=== PATIENT | female | born 1985 | race Caucasian/White ===

== ENCOUNTER 2016-06-20 17:42 | Emergency (ER) | payer SELFPAY ==
--- NOTE | 2016-06-20 18:58 | EDM.PDOC ---
[id number] 4d TOOTH PAIN Time Seen by Provider: 06/20/16 18:00 Source of Information: Reports: Patient History Limitations: Reports: No limitations - History of Present Illness INITIAL COMMENTS - FREE TEXT/NARRATIVE: HISTORY AND PHYSICAL: History of present illness: [31-year-old female complaining of left jaw toothache previously seen for this and prescribed amoxicillin with which she is compliant. Patient states she has persistent pain she is requesting pain medicine. No fevers chills sweats or shaking chills no headache or stiff neck. No chest pain or shortness of breath. Patient has not seen a dentist yet Review of systems: As per history of present illness and below otherwise all systems reviewed and negative. Past medical history: As per history of present illness and as reviewed below otherwise noncontributory. Surgical history: As per history of present illness and as reviewed below otherwise noncontributory. Social history: No reported history of drug or alcohol abuse. Family history: As per history of present illness and as reviewed below otherwise noncontributory. Physical exam: HEENT: Atraumatic, normocephalic, negative for conjunctival pallor or scleral icterus, mucous membranes moist, throat clear, neck supple, nontender, trachea midline. Left lower teeth with cavity but no soft tissue swelling mass tongue elevation /submental swelling or induration Lungs: Clear to auscultation, breath sounds equal bilaterally, chest nontender. Heart: S1S2, regular, negative for clicks, rubs, or JVD. Abdomen: Soft, nondistended, Negative for masses or hepatosplenomegaly. Pelvis: Stable nontender. Genitourinary: Deferred. Rectal: Deferred. Extremities: Atraumatic, negative for cords or calf pain. Neurovascular unremarkable. Neuro: Awake, alert, oriented. Motor unremarkable throughout. Exam nonfocal. Diagnostics: [] Therapeutics: [] Impression: [] Plan: [Signs and symptoms consistent with toothache however patient started been seen for this there is no evidence of drainable abscess or visible infection. Patient aware to take ibuprofen and Tylenol and followup for definitive dental care. Patient agrees with outpatient followup and strict return precautions given] Definitive disposition and diagnosis as appropriate pending reevaluation and review of above. Tooth/Teeth Pain Score (Numeric/FACES): 8 - Related Data Allergies Allergy/AdvReac Type Severity Reaction Status Date / Time No Known Allergies Allergy Verified 06/20/16 17:58 Home Meds: Home Meds Acetaminophen with Codeine [Acetaminophen-Cod #3] 1 tab PO TID PRN 06/20/16 [ History] Amoxicillin [IJD: Amoxicillin] 500 mg PO .THREE TIMES DAILY 06/20/16 [History] Penicillin V Potassium [IJP: Penicillin V Potassium] 500 mg PO .EVERY 6 HOURS # 40 tab 06/20/16 [Rx] Past Medical History Gastrointestinal History: Reports: None - Infectious Disease History Infectious Disease History: Reports: Chicken pox - Past Surgical History Head Surgeries/Procedures: Reports: None HEENT Surgical History: Reports: Tonsillectomy GI Surgical History: Reports: Appendectomy Social & Family History - Family History Family Medical History: Noncontributory - Tobacco Use Smoking Status *Q: Current Every Day Smoker Years of Tobacco use: 16 Packs/Tins Daily: 1 Second Hand Smoke Exposure: Yes - Caffeine Use Caffeine Use: Reports: Soda - Recreational Drug Use Recreational Drug Use: No ED ROS GENERAL - Review of Systems Review Of Systems: See Below (History of present illness) ED EXAM, GENERAL - Physical Exam Exam: See Below (History of present illness) Exam Limited By: No limitations Course - Vital Signs Last Recorded V/S: Last Vital Signs Temp 36.3 C 06/20/16 17:54 Pulse 56 L 06/20/16 19:40 Resp 18 06/20/16 19:40 BP 128/70 06/20/16 19:40 Pulse Ox 99 06/20/16 19:40 - Orders/Labs/Meds Meds: Medications Discontinued Medications Generic Name Dose Route Start Last Admin Trade Name Luis Alberto PRN Reason Stop Dose Admin Acetaminophen/Hydrocodone Bitart 1 tab 06/20/16 19:08 06/20/16 19:13 Amoret 325-5 Mg PO 06/20/16 19:09 1 tab ONETIME ONE Administration Benzocaine 2 each 06/20/16 19:03 06/20/16 19:13 Hurricaine One 20% MUCMEM 06/20/16 19:04 2 each ONETIME STA Administration Ketorolac Tromethamine 30 mg 06/20/16 19:06 06/20/16 19:20 Toradol IVPUSH 06/20/16 19:07 Not Given ONETIME ONE Ketorolac Tromethamine 30 mg 06/20/16 19:18 06/20/16 19:13 Toradol IM 06/20/16 19:19 30 mg ONETIME ONE Administration Lidocaine HCl 15 ml 06/20/16 19:04 06/20/16 19:13 Xylocaine 2% Viscous PO 06/20/16 19:05 15 ml ONETIME ONE Administration Departure - Departure Time of Disposition: 19:09 Disposition: Home, Self-Care 01 Condition: good Clinical Impression: Toothache Prescriptions: Penicillin V Potassium [IJP: Penicillin V Potassium] 500 mg PO .EVERY 6 HOURS # 40 tab Instructions: Tooth Injuries Referrals: PCP,None [Primary Care Provider] - Forms: ED Department Discharge Additional Instructions: Finish penicillin as prescribed. motrin and tylenol as needed for pain. follow up with your dentist tomorrow.
[2016-06-20] MEDS ORDERED: Benzocaine 20% Topical Spray UD MUCMEM STA (19:03)
[2016-06-20] MEDS ORDERED: Lidocaine 2% Viscous Solution 15 ML Cup PO ONE (19:04)
[2016-06-20] MEDS ORDERED: Acetaminophen/HYDROcodone 325-5 MG Tab PO ONE (19:08)
[2016-06-20] MEDS: Ketorolac 30 MG/ML SDV IVPUSH ONE ×2 (19:14→19:20)
[2016-06-20] MEDS ORDERED: Ketorolac 30 MG/ML SDV IM ONE (19:18)
[2016-06-20 21:17] VITALS: BP 128/70
== END 2016-06-20 19:41 | disposition home or self-care (01) ==
LOC: MW.ED 17:42
DX: K08.9 Disorder of teeth and supporting structures, unspecified (principal); F17.210 Nicotine dependence, cigarettes, uncomplicated; Z79.899 Other long term (current) drug therapy; Z90.49 Acquired absence of other specified parts of digestive tract; Z98.890 Other specified postprocedural states
CPT/HCPCS: 96372; 99282; A9270; J1885; 99283